=== PATIENT | male | born 1945 | race Two or more races ===

== ENCOUNTER 2018-04-12 21:46 | Emergency (ER) | payer MEDICARE ==
[2018-04-12 22:37] VITALS: BP 119/75; PULSE 97; RESP 16; TEMP 98.1; O2SAT 99
--- NOTE | 2018-04-12 22:42 | ED PDOC ---
HPI: Psych/Substance Abuse Time Seen by Provider: 04/12/18 22:35 Chief Complaint (Nursing): Alcohol Ingestion Chief Complaint (Provider): etoh History Per: Patient, EMS History/Exam Limitations: no limitations Additional Complaint(s): 72 y/o male brought in by EMS for alcohol intoxication. Patient awake, alert, oriented x3 during assessment; ambulating steady gait. Patient offers on acute medical or psychiatric complaints, requesting to be discharged. Past Medical History Reviewed: Historical Data, Nursing Documentation, Vital Signs Vital Signs: Last Vital Signs Temp 98.1 F 04/12/18 21:49 Pulse 97 H 04/12/18 21:49 Resp 16 04/12/18 21:49 BP 119/75 04/12/18 21:49 Pulse Ox 99 04/12/18 21:49 - Medical History PMH: Diabetes - Surgical History Surgical History: No Surg Hx - Family History Family History: States: No Known Family Hx - Allergies Allergies/Adverse Reactions: Allergies Allergy/AdvReac Type Severity Reaction Status Date / Time No Known Allergies Allergy Verified 04/12/18 21:48 Review of Systems ROS Statement: Except As Marked, All Systems Reviewed And Found Negative Physical Exam - Reviewed Nursing Documentation Reviewed: Yes Vital Signs Reviewed: Yes - Physical Exam Appears: Positive for: Well, Non-toxic, No Acute Distress Head Exam: Positive for: ATRAUMATIC, NORMAL INSPECTION, NORMOCEPHALIC Skin: Positive for: Normal Color Eye Exam: Positive for: Normal appearance ENT: Positive for: Normal ENT Inspection Cardiovascular/Chest: Positive for: Regular Rate, Rhythm Respiratory: Positive for: Normal Breath Sounds Gastrointestinal/Abdominal: Positive for: Normal Exam Back: Positive for: Normal Inspection Extremity: Positive for: Normal ROM Neurologic/Psych: Positive for: Alert, Oriented (x3) - ECG O2 Sat by Pulse Oximetry: 99 - Progress ED Course And Treament: -accucheck Patient awake, alert, oriented x3. Ambulating steady gait Patient requires no further intervention in the ED and is stable for discharge at this time Disposition - Clinical Impression Clinical Impression: Alcohol use - Patient ED Disposition Is Patient to be Admitted: No Counseled Patient/Family Regarding: Studies Performed, Diagnosis, Need For Followup - Disposition Disposition: Routine/Home Disposition Time: 22:45 Condition: STABLE Instructions: Alcohol Use - When Is Drinking a Problem? Print Language: ICELANDIC
== END 2018-04-12 23:40 | disposition home or self-care (01) ==
LOC: H.ER 21:46
DX: F10.10 Alcohol abuse, uncomplicated (principal); E11.9 Type 2 diabetes mellitus without complications